=== PATIENT | female | born 1980 | race Two or more races ===

== ENCOUNTER 2021-10-19 16:07 | Inpatient (IN) | payer OTHER ==
[~2021-10-19] VITALS: Ht 165.1 cm; Wt 65.8 kg
== END 2021-10-21 20:19 | disposition home or self-care (01) | DRG 419 ==
LOC: ER 16:07 → O/R 10-20 11:26 → SURH 10-20 11:26 → SEC-K 10-20 11:26 → O/R 10-20 15:09 → SURH 10-20 18:51
PROVIDERS: ADMIT Surgery; ATTEND Surgery
PROC: BF50200 Other Imaging of Bile Ducts using Fluorescing Agent, Indocyanine Green Dye, Intraoperative (ICD-10-PCS; 2021-10-20)
PROC: 0FT44ZZ Resection of Gallbladder, Percutaneous Endoscopic Approach (ICD-10-PCS; principal; 2021-10-20 13:00)
DX: K80.10 Calculus of gallbladder with chronic cholecystitis without obstruction (principal)